=== PATIENT | male | born 1985 | race Caucasian/White ===

== ENCOUNTER 2024-03-11 13:55 | Outpatient (CLI) | payer OTHER, SELFPAY ==
--- NOTE | ~2024-03-11 | MR_ITS ---
EXAMINATION: MR knee RT wo con DATE: 03/11/2024 14:45 INDICATION: Right knee pain and instability TECHNIQUE: Magnetic resonance imaging (MRI) of the right knee was performed without intravenous contr ast. Sequences included coronal PD-weighted FSE, coronal PD-weighted FS FSE, sagittal T2-weighted FS E, sagittal PD-weighted FS FSE and axial PD weighted fat saturated FSE. COMPARISON: None. FINDINGS: Medial compartment: Complex medial meniscal tear which includes a longitudinal horizontal tear plane extending to the and inferior articular surface at the anterior body and transition of the superior articular surface in the posterior body and posterior horn. Additional vertical oriented tear plane involving both the sup erior and inferior articular surface at the lateral side of the posterior horn. Region of deep chondr al ulceration and fissuring small focus of mild subarticular edema-like signal change at the anterior weightbearing medial femoral condyle. Additional deep chondral fissuring along the anterior third of the medial tibial plateau without degenerative subchondral changes. Lateral compartment: Lateral meniscus is normal. Relatively shallow chondral fissure involving less than 50% the cartilage thickness extending anteroposteriorly across the anterior weightbearing lateral femoral condyle. Nor mal cartilage at the lateral tibial plateau. Patellofemoral compartment: Additional mild partial-thickness chondral fissuring without degenerative subchondral changes at the central aspect of the lateral patellar facet extending to the apical ridge. Partial-thickness chondra l ulceration and deeper fissuring without degenerative subchondral changes at the inferior aspect of the trochlear groove and inferomedial aspect of the lateral trochlea. Ligaments and tendons: There is diffuse increased signal at the anterior cruciate ligament which is bowed posteriorly consis tent with at least partial tear of the posterior cruciate ligament is normal. The medial collateral l igament and fibular collateral ligament complex are normal. The extensor mechanism is normal. The vis ualized medial and lateral hamstring tendons as well as the iliotibial band are normal. Fluid: Moderate-sized right knee joint effusion with surrounding mild synovitis at the suprapatellar pouch. No loose osteochondral bodies identified. Osseous/other: Normal marrow signal. No fracture or pathologic marrow replacing process. IMPRESSION: 1. Complex medial meniscal tear. 2. 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 3. At least partial tear of the posteriorly bowed anterior cruciate ligament. Correlate with physical exam to assess for degree of any residual functional integrity. 4. Moderate-sized right knee joint effusion. Reviewed, dictated and finalized at location A. IMPRESSION: 1. Complex medial meniscal tear. 2. Mild tricompartmental osteoarthritis with moderate and high-grade chondral m alacia the medial compartment and moderate grade chondromalacia portions of the lateral and patellofemoral compartments. 3. At least partial tear of the posteriorly bowed anterior cruciate ligament. C orrelate with physical exam to assess for degree of any residual functional int egrity. 4. Moderate-sized right knee joint effusion.
== END 2024-03-11 13:56 | disposition home or self-care (01) ==
PROVIDERS: Visit Provider Family Medicine
DX: S83.231A Complex tear of medial meniscus, current injury, right knee, initial encounter (principal); X58.XXXA Exposure to other specified factors, initial encounter; M17.11 Unilateral primary osteoarthritis, right knee; M25.461 Effusion, right knee
CPT/HCPCS: 73721